=== PATIENT | male | born 1965 | race African-American/Black ===

== ENCOUNTER 2022-04-20 01:21 | Inpatient (IN) | payer SELFPAY ==
[2022-04-20] MEDS ORDERED: PANTOPRAZOLE SODIUM 40 MG VIAL IVPUSH ONE (02:08)
[2022-04-20] MEDS ORDERED: PANTOPRAZOLE SODIUM 40 MG/100 ML BAG IVPB ONE (02:46)
[2022-04-20 03:13] LABS: BASO % 0.7 % (0-2.0); EOS % 0.2 % (0-4.5); HEMATOCRIT 25.9 % (35.4-49); HEMOGLOBIN 8.1 GM/dL (11.7-16.9); LYMPH % 13.4 % (8-40); MCH 20.7 pg (25.7-33.7); MCHC 31.2 g/dl (32.0-35.9); MEAN CELL VOLUME 66.3 fl (80-96); MEAN PLT VOLUME 8.1 fl (7.5-11.1); MONO % 5.1 % (3.8-10.2); NEUT % 80.6 % (42.8-82.8); PLATELET COUNT 322 10^3/uL (134-434); RBC 3.91 M/mm3 (4.00-5.60); RDW 23.6 % (11.9-15.9); WHITE BLOOD COUNT 8.2 K/mm3 (4.0-10.0)
[2022-04-20 03:31] LABS: CALCIUM 9.3 mg/dL (8.5-10.1)
[2022-04-20 03:33] LABS: ALBUMIN 3.2 g/dl (3.4-5.0); BLOOD UREA NITROGEN 28.1 mg/dL (7-18)
[2022-04-20 03:36] LABS: CREATININE 1.9 mg/dL (0.55-1.3)
[2022-04-20 03:37] LABS: BILIRUBIN,TOTAL 0.3 mg/dL (0.2-1); TOT PROT 6.1 g/dl (6.4-8.2)
[2022-04-20 04:35] LABS: ANISOCYTOSIS 3+; MACROCYTOSIS 0; ROULEAU 2+
[2022-04-20] MEDS ORDERED: PANTOPRAZOLE SODIUM 40 MG VIAL IVPUSH SCH (10:00)
[2022-04-20] MEDS ORDERED: SODIUM CHLORIDE 1,000 ML IV STA (11:15)
[2022-04-20] MEDS: PANTOPRAZOLE SODIUM 160 MG in SODIUM CHLORIDE 290 ML IVPB SCH ×2 (12:00→22:19)
[2022-04-20 12:15] LABS: BLOOD UREA NITROGEN 34.6 mg/dL (7-18)
[2022-04-20 12:19] LABS: BILIRUBIN,TOTAL 0.3 mg/dL (0.2-1); CREATININE 1.8 mg/dL (0.55-1.3); TOT PROT 4.6 g/dl (6.4-8.2)
[2022-04-20 12:23] LABS: ALBUMIN 2.5 g/dl (3.4-5.0)
[2022-04-20 16:17] LABS: INR 1.34 (0.83-1.09); PROTHROMBIN TIME (PATIENT) 15.5 SEC (9.7-13.0)
[2022-04-20 16:20] LABS: ACTIVATED PTT 22.6 SECONDS (25.2-36.5)
[2022-04-20 16:43] LABS: BASO % 0.3 % (0-2.0); HEMATOCRIT 28.3 % (35.4-49); HEMOGLOBIN 9.3 GM/dL (11.7-16.9); LYMPH % 14.4 % (8-40); MCH 25.8 pg (25.7-33.7); MCHC 32.8 g/dl (32.0-35.9); MEAN CELL VOLUME 78.7 fl (80-96); MONO % 7.3 % (3.8-10.2); PLATELET COUNT 199 10^3/uL (134-434); RBC 3.59 M/mm3 (4.00-5.60); RDW 26.1 % (11.9-15.9); WHITE BLOOD COUNT 9.5 K/mm3 (4.0-10.0)
[2022-04-20] MEDS: SODIUM CHLORIDE 1,000 ML IV SCH (16:45)
[2022-04-20] MEDS ORDERED: PHYTONADIONE 10 MG/1 ML AMP IVPB STA (19:04)
[2022-04-20] MEDS ORDERED: DESMOPRESSIN ACETATE 4 MCG/ML AMP IVPB STA (19:04)
[2022-04-20 19:36] LABS: BLOOD UREA NITROGEN 34.3 mg/dL (7-18); CALCIUM 7.2 mg/dL (8.5-10.1)
[2022-04-20 19:41] LABS: CREATININE 1.7 mg/dL (0.55-1.3)
[2022-04-20 20:30] LABS: BASO % 0.2 % (0-2.0); HEMATOCRIT 21.4 % (35.4-49); LYMPH % 10.6 % (8-40); MCH 25.9 pg (25.7-33.7); MCHC 32.7 g/dl (32.0-35.9); MEAN CELL VOLUME 79.2 fl (80-96); MEAN PLT VOLUME 8.6 fl (7.5-11.1); MONO % 8.9 % (3.8-10.2); NEUT % 80.3 % (42.8-82.8); PLATELET COUNT 212 10^3/uL (134-434); RDW 22.1 % (11.9-15.9)
[2022-04-20 20:50] LABS: INR 1.34 (0.83-1.09); PROTHROMBIN TIME (PATIENT) 15.5 SEC (9.7-13.0)
[2022-04-20 20:52] LABS: ACTIVATED PTT 22.6 SECONDS (25.2-36.5)
[2022-04-20 21:21] LABS: LACTIC ACID 2.5 mmol/L (0.4-2.0)
[2022-04-21 03:28] LABS: HEMATOCRIT 22.5 % (35.4-49); HEMOGLOBIN 7.7 GM/dL (11.7-16.9); MCH 27.7 pg (25.7-33.7); MCHC 34.4 g/dl (32.0-35.9); MEAN CELL VOLUME 80.6 fl (80-96); MEAN PLT VOLUME 8.4 fl (7.5-11.1); PLATELET COUNT 182 10^3/uL (134-434); RBC 2.79 M/mm3 (4.00-5.60); RDW 19.2 % (11.9-15.9)
[2022-04-21 09:58] LABS: HEMATOCRIT 22.9 % (35.4-49); HEMOGLOBIN 7.6 GM/dL (11.7-16.9); MCH 27.4 pg (25.7-33.7); MCHC 33.4 g/dl (32.0-35.9); MEAN PLT VOLUME 8.8 fl (7.5-11.1); PLATELET COUNT 179 10^3/uL (134-434); RBC 2.79 M/mm3 (4.00-5.60); RDW 18.9 % (11.9-15.9); WHITE BLOOD COUNT 18.2 K/mm3 (4.0-10.0)
[2022-04-21 10:05] LABS: INR 1.18 (0.83-1.09); PROTHROMBIN TIME (PATIENT) 13.6 SEC (9.7-13.0)
[2022-04-21 10:26] LABS: ALBUMIN 2.4 g/dl (3.4-5.0); BLOOD UREA NITROGEN 44.8 mg/dL (7-18); CALCIUM 7.3 mg/dL (8.5-10.1)
[2022-04-21 10:29] LABS: CREATININE 3.8 mg/dL (0.55-1.3)
[2022-04-21 10:31] LABS: TOT PROT 4.4 g/dl (6.4-8.2)
[2022-04-21] MEDS ORDERED: DEXTROSE 5%-0.45% SALINE 1,000 ML IV SCH (11:15)
[2022-04-21] MEDS: DEXTROSE 5%-0.45% SALINE 1,000 ML IV SCH (15:24)
[2022-04-21] MEDS ORDERED: SODIUM ZIRCONIUM CYCLOSILICATE (LOKELMA) 5 GM PACKET PO SCH (16:15)
[2022-04-21] MEDS ORDERED: ALBUMIN HUMAN 25% 12.5 GM/50 ML VIAL IV SCH (17:00)
[2022-04-21] MEDS: PANTOPRAZOLE SODIUM 160 MG in SODIUM CHLORIDE 290 ML IVPB SCH (17:21)
[2022-04-21] MEDS: SODIUM CHLORIDE 1,000 ML IV SCH ×2 (20:47)
[2022-04-22] MEDS: DEXTROSE 5%-0.45% SALINE 1,000 ML IV SCH ×2 (04:03→20:29)
[2022-04-22] MEDS: PANTOPRAZOLE SODIUM 160 MG in SODIUM CHLORIDE 290 ML IVPB SCH (05:35)
[2022-04-22 08:24] LABS: HEMATOCRIT 20.3 % (35.4-49); MCH 27.6 pg (25.7-33.7); MCHC 33.8 g/dl (32.0-35.9); MEAN CELL VOLUME 81.7 fl (80-96); MEAN PLT VOLUME 8.8 fl (7.5-11.1); PLATELET COUNT 158 10^3/uL (134-434); RBC 2.49 M/mm3 (4.00-5.60); RDW 16.9 % (11.9-15.9); WHITE BLOOD COUNT 13.2 K/mm3 (4.0-10.0)
[2022-04-22 08:31] LABS: INR 1.03 (0.83-1.09); PROTHROMBIN TIME (PATIENT) 11.8 SEC (9.7-13.0)
[2022-04-22 08:33] LABS: ACTIVATED PTT 22.8 SECONDS (25.2-36.5)
[2022-04-22 08:41] LABS: CALCIUM 7.9 mg/dL (8.5-10.1)
[2022-04-22 08:42] LABS: ALBUMIN 2.6 g/dl (3.4-5.0); BLOOD UREA NITROGEN 42.2 mg/dL (7-18)
[2022-04-22 08:45] LABS: BILIRUBIN,TOTAL 0.8 mg/dL (0.2-1); CREATININE 2.6 mg/dL (0.55-1.3); TOT PROT 4.6 g/dl (6.4-8.2)
[2022-04-22 08:49] LABS: HEMOGLOBIN 6.9 GM/dL (11.7-16.9)
[2022-04-22] MEDS ORDERED: LACTULOSE 20 GM/30 ML UDC (FOR ORAL USE ONLY) PO ONE ×2 (10:30→11:30)
[2022-04-22] MEDS ORDERED: SODIUM PHOSPHATE/NA BIPHOS 133 ML ENEMA RC ONE (12:30)
[2022-04-22 14:20] VITALS: BMI 24.3
[2022-04-22 18:16] LABS: BASO % 0.4 % (0-2.0); EOS % 0.3 % (0-4.5); HEMATOCRIT 27.2 % (35.4-49); HEMOGLOBIN 9.2 GM/dL (11.7-16.9); LYMPH % 15.5 % (8-40); MCH 28.1 pg (25.7-33.7); MEAN CELL VOLUME 82.7 fl (80-96); MEAN PLT VOLUME 8.4 fl (7.5-11.1); MONO % 8.9 % (3.8-10.2); NEUT % 74.9 % (42.8-82.8); PLATELET COUNT 147 10^3/uL (134-434); RBC 3.29 M/mm3 (4.00-5.60); RDW 16.2 % (11.9-15.9); WHITE BLOOD COUNT 13.9 K/mm3 (4.0-10.0)
[2022-04-22] MEDS: VERAPAMIL HCL 240 MG E.R. TABLET PO SCH (21:30)
[2022-04-23 07:33] LABS: INR 1.01 (0.83-1.09); PROTHROMBIN TIME (PATIENT) 11.6 SEC (9.7-13.0)
[2022-04-23 07:36] LABS: ACTIVATED PTT 25.4 SECONDS (25.2-36.5)
[2022-04-23] MEDS: VERAPAMIL HCL 240 MG E.R. TABLET PO SCH (10:06)
[2022-04-23 12:47] LABS: HEMATOCRIT 24.8 % (35.4-49); HEMOGLOBIN 8.4 GM/dL (11.7-16.9); MCH 28.2 pg (25.7-33.7); MCHC 33.9 g/dl (32.0-35.9); MEAN CELL VOLUME 83.2 fl (80-96); MEAN PLT VOLUME 8.3 fl (7.5-11.1); PLATELET COUNT 155 10^3/uL (134-434); RBC 2.98 M/mm3 (4.00-5.60); RDW 16.6 % (11.9-15.9); WHITE BLOOD COUNT 13.2 K/mm3 (4.0-10.0)
[2022-04-23] MEDS ORDERED: DESMOPRESSIN ACETATE 4 MCG/ML AMP IVPB STA (14:22)
[2022-04-23] MEDS ORDERED: DESMOPRESSIN ACETATE 20 MCG in SODIUM CHLORIDE 50 ML IVPB ONE (14:30)
[2022-04-23 14:31] LABS: ALBUMIN 2.5 g/dl (3.4-5.0); BLOOD UREA NITROGEN 18.4 mg/dL (7-18); CALCIUM 8.3 mg/dL (8.5-10.1); CREATININE 1.4 mg/dL (0.55-1.3); MAGNESIUM 1.9 mg/dL (1.8-2.4); PHOSPHOROUS 2.8 mg/dL (2.5-4.9)
[2022-04-23] MEDS ORDERED: POTASSIUM CHLORIDE ORAL LIQUID 20 MEQ/15 ML PO ONE (14:33)
[2022-04-24 09:05] LABS: HEMATOCRIT 24.2 % (35.4-49); HEMOGLOBIN 8.3 GM/dL (11.7-16.9); MCH 28.3 pg (25.7-33.7); MCHC 34.3 g/dl (32.0-35.9); MEAN CELL VOLUME 82.4 fl (80-96); MEAN PLT VOLUME 8.4 fl (7.5-11.1); PLATELET COUNT 179 10^3/uL (134-434); RBC 2.94 M/mm3 (4.00-5.60); RDW 15.9 % (11.9-15.9); WHITE BLOOD COUNT 8.9 K/mm3 (4.0-10.0)
[2022-04-24 09:08] LABS: INR 1.01 (0.83-1.09); PROTHROMBIN TIME (PATIENT) 11.6 SEC (9.7-13.0)
[2022-04-24 09:10] LABS: ACTIVATED PTT 26.4 SECONDS (25.2-36.5)
[2022-04-24] MEDS: VERAPAMIL HCL 240 MG E.R. TABLET PO SCH (09:20)
[2022-04-24 09:37] LABS: ALBUMIN 2.6 g/dl (3.4-5.0); BLOOD UREA NITROGEN 15.6 mg/dL (7-18); CALCIUM 8.4 mg/dL (8.5-10.1)
[2022-04-24 09:40] LABS: CREATININE 1.4 mg/dL (0.55-1.3)
[2022-04-24 09:41] LABS: TOT PROT 5.2 g/dl (6.4-8.2)
[2022-04-24] MEDS: FERROUS SO4 325 MG TABLET (FP) PO SCH ×2 (13:04→17:53)
[2022-04-25] MEDS ORDERED: FOLIC ACID 1 MG TABLET (FP) PO SCH (10:00)
[2022-04-25] MEDS ORDERED: ASCORBIC ACID 500 MG TABLET (FP) PO SCH (10:00)
[2022-04-25 10:19] LABS: HEMATOCRIT 25.7 % (35.4-49); HEMOGLOBIN 8.6 GM/dL (11.7-16.9); MCH 27.7 pg (25.7-33.7); MCHC 33.4 g/dl (32.0-35.9); MEAN PLT VOLUME 8.8 fl (7.5-11.1); PLATELET COUNT 231 10^3/uL (134-434); RDW 16.2 % (11.9-15.9); WHITE BLOOD COUNT 8.2 K/mm3 (4.0-10.0)
[2022-04-25 10:27] LABS: INR 1.01 (0.83-1.09); PROTHROMBIN TIME (PATIENT) 11.6 SEC (9.7-13.0)
[2022-04-25 10:30] LABS: ACTIVATED PTT 28.5 SECONDS (25.2-36.5)
[2022-04-25 10:49] LABS: CALCIUM 8.7 mg/dL (8.5-10.1)
[2022-04-25 10:51] LABS: ALBUMIN 2.8 g/dl (3.4-5.0); BLOOD UREA NITROGEN 14.7 mg/dL (7-18)
[2022-04-25 10:53] LABS: CREATININE 1.7 mg/dL (0.55-1.3)
[2022-04-25 10:55] LABS: BILIRUBIN,TOTAL 0.6 mg/dL (0.2-1); TOT PROT 5.7 g/dl (6.4-8.2)
[2022-04-25] MEDS: VERAPAMIL HCL 240 MG E.R. TABLET PO SCH (10:55)
[2022-04-25] MEDS: FERROUS SO4 325 MG TABLET (FP) PO SCH ×2 (10:55→14:16)
[2022-04-25 10:57] VITALS: RESP 18
[2022-04-25] MEDS ORDERED: POTASSIUM CHLORIDE ORAL LIQUID 20 MEQ/15 ML PO ONE (12:45)
[2022-04-25 15:25] VITALS: BP 129/68; PULSE 76; TEMP 99.1
== END 2022-04-25 18:19 | disposition home or self-care (01) | DRG 244 ==
LOC: JER 01:21 → JERBED 03:14 → UNDOADMOB 03:14 → INTOOBSV 03:14 → J6S 09:57 → JERBED 09:57 → J6S 10:40 → JERBED 10:40 → JICU 12:14 → OBSVTOIN 14:56 → J8W 04-23 14:07
PROVIDERS: ADMIT Family Medicine; ATTEND Family Medicine
PROC: 30233N1 Transfusion of Nonautologous Red Blood Cells into Peripheral Vein, Percutaneous Approach (ICD-10-PCS; 2022-04-20)
PROC: 30233L1 Transfusion of Nonautologous Fresh Plasma into Peripheral Vein, Percutaneous Approach (ICD-10-PCS; 2022-04-20)
PROC: 30233K1 Transfusion of Nonautologous Frozen Plasma into Peripheral Vein, Percutaneous Approach (ICD-10-PCS; 2022-04-20)
PROC: 30233R1 Transfusion of Nonautologous Platelets into Peripheral Vein, Percutaneous Approach (ICD-10-PCS; 2022-04-20)
PROC: 02HV33Z Insertion of Infusion Device into Superior Vena Cava, Percutaneous Approach (ICD-10-PCS; 2022-04-20)
PROC: B415YZZ Fluoroscopy of Inferior Mesenteric Artery using Other Contrast (ICD-10-PCS; 2022-04-20)
PROC: B414YZZ Fluoroscopy of Superior Mesenteric Artery using Other Contrast (ICD-10-PCS; 2022-04-20)
PROC: 30233M1 Transfusion of Nonautologous Plasma Cryoprecipitate into Peripheral Vein, Percutaneous Approach (ICD-10-PCS; 2022-04-21)
PROC: 0DJ08ZZ Inspection of Upper Intestinal Tract, Via Natural or Artificial Opening Endoscopic (ICD-10-PCS; principal; 2022-04-22 14:00)
DX: K57.93 Diverticulitis of intestine, part unspecified, without perforation or abscess with bleeding (principal); I42.1 Obstructive hypertrophic cardiomyopathy; E87.0 Hyperosmolality and hypernatremia; N17.9 Acute kidney failure, unspecified; I48.91 Unspecified atrial fibrillation; R10.9 Unspecified abdominal pain; E87.5 Hyperkalemia; R00.0 Tachycardia, unspecified; E78.5 Hyperlipidemia, unspecified; I12.9 Hypertensive chronic kidney disease with stage 1 through stage 4 chronic kidney disease, or unspecified chronic kidney disease; I95.9 Hypotension, unspecified; K62.5 Hemorrhage of anus and rectum; N18.9 Chronic kidney disease, unspecified; D64.9 Anemia, unspecified
CPT/HCPCS: 36415; 36430; 37244; 71045-TC-FY; 74174-TC; 80048; 80053; 82272; 82962; 83605; 83735; 84100; 84484; 85025; 85027; 85610; 85730; 86850; 86900; 86901; 86922; 86965; 93005; 93010; 99285-25; C9803-CS; G0378; J2597; P9012; P9017; P9034; P9058; U0003; U0005

== ENCOUNTER 2022-04-29 00:58 | Inpatient (IN) | payer SELFPAY ==
[2022-04-29 07:18] LABS: BASO % 0.8 % (0-2.0); EOS % 0.7 % (0-4.5); HEMATOCRIT 22.9 % (35.4-49); HEMOGLOBIN 7.6 GM/dL (11.7-16.9); LYMPH % 12.1 % (8-40); MCH 28.1 pg (25.7-33.7); MCHC 33.4 g/dl (32.0-35.9); MEAN CELL VOLUME 84.2 fl (80-96); MEAN PLT VOLUME 7.8 fl (7.5-11.1); MONO % 10.9 % (3.8-10.2); NEUT % 75.5 % (42.8-82.8); PLATELET COUNT 368 10^3/uL (134-434); RBC 2.72 M/mm3 (4.00-5.60); RDW 16.5 % (11.9-15.9); WHITE BLOOD COUNT 13.4 K/mm3 (4.0-10.0)
[2022-04-29 07:21] LABS: ACTIVATED PTT 27.6 SECONDS (25.2-36.5); INR 1.03 (0.83-1.09); PROTHROMBIN TIME (PATIENT) 11.8 SEC (9.7-13.0)
[2022-04-29] MEDS ORDERED: SODIUM CHLORIDE 1,000 ML IV SCH (07:30)
[2022-04-29 07:43] LABS: ALBUMIN 2.8 g/dl (3.4-5.0); ALK PHOS 60 U/L (45-117); BILIRUBIN,TOTAL 0.3 mg/dL (0.2-1); BLOOD UREA NITROGEN 29.5 mg/dL (7-18); CALCIUM 8.6 mg/dL (8.5-10.1); CHLORIDE 103 mmol/L (98-107); CO2 28 mmol/L (21-32); CREATININE 1.9 mg/dL (0.55-1.3); GLUCOSE,RANDOM 118 mg/dL (74-106); SGOT/AST 11 U/L (15-37); SGPT/ALT 17 U/L (13-61); SODIUM 139 mmol/L (136-145); TOT PROT 5.8 g/dl (6.4-8.2)
[2022-04-29] MEDS ORDERED: LACTULOSE 20 GM/30 ML UDC (FOR ORAL USE ONLY) PO ONE ×2 (09:12→10:30)
[2022-04-29 09:24] LABS: BASO % 0.6 % (0-2.0); EOS % 0.9 % (0-4.5); HEMATOCRIT 26.9 % (35.4-49); LYMPH % 17.1 % (8-40); MCH 27.7 pg (25.7-33.7); MCHC 33.3 g/dl (32.0-35.9); MEAN CELL VOLUME 83.1 fl (80-96); MEAN PLT VOLUME 8.4 fl (7.5-11.1); MONO % 11.8 % (3.8-10.2); NEUT % 69.6 % (42.8-82.8); PLATELET COUNT 320 10^3/uL (134-434); RBC 3.24 M/mm3 (4.00-5.60); RDW 15.6 % (11.9-15.9); WHITE BLOOD COUNT 10.8 K/mm3 (4.0-10.0)
[2022-04-29 09:45] LABS: ALBUMIN 2.7 g/dl (3.4-5.0); BLOOD UREA NITROGEN 24.4 mg/dL (7-18); CALCIUM 8.6 mg/dL (8.5-10.1)
[2022-04-29 09:48] LABS: CREATININE 1.5 mg/dL (0.55-1.3)
[2022-04-29 09:50] LABS: BILIRUBIN,TOTAL 0.5 mg/dL (0.2-1); TOT PROT 5.5 g/dl (6.4-8.2)
[2022-04-29] MEDS ORDERED: LACTULOSE 20 GM/30 ML UDC (FOR ORAL USE ONLY) ONE ×2 (09:59→11:37)
[2022-04-29] MEDS ORDERED: SODIUM PHOSPHATE/NA BIPHOS 133 ML ENEMA RC ONE (12:00)
[2022-04-29 12:31] LABS: MAGNESIUM 1.9 mg/dL (1.8-2.4)
[2022-04-29 12:39] LABS: N-TERMINAL BNP 553.8 pg/ml (5-125)
[2022-04-29 17:44] VITALS: BMI 24.9
[2022-04-30] MEDS ORDERED: SIMETHICONE 80 MG TAB.CHEW (FP) PO PRN (08:55)
[2022-04-30 11:31] LABS: HEMOGLOBIN 9.1 GM/dL (11.7-16.9); MCH 28.5 pg (25.7-33.7); MCHC 33.7 g/dl (32.0-35.9); MEAN CELL VOLUME 84.7 fl (80-96); PLATELET COUNT 305 10^3/uL (134-434); RBC 3.18 M/mm3 (4.00-5.60); RDW 16.1 % (11.9-15.9); WHITE BLOOD COUNT 7.1 K/mm3 (4.0-10.0)
[2022-04-30 12:04] VITALS: BP 150/90; PULSE 88; RESP 16; TEMP 99.8
== END 2022-04-30 13:15 | disposition home or self-care (01) | DRG 244 ==
LOC: JER 00:58 → JERBED 07:10 → J7W 17:03 → OBSVTOIN 04-30 11:56
PROVIDERS: ADMIT Family Medicine; ATTEND Family Medicine
PROC: 0W3P8ZZ Control Bleeding in Gastrointestinal Tract, Via Natural or Artificial Opening Endoscopic (ICD-10-PCS; principal; 2022-04-29 14:00)
DX: K57.33 Diverticulitis of large intestine without perforation or abscess with bleeding (principal); I12.9 Hypertensive chronic kidney disease with stage 1 through stage 4 chronic kidney disease, or unspecified chronic kidney disease; N18.9 Chronic kidney disease, unspecified; I48.91 Unspecified atrial fibrillation; D62 Acute posthemorrhagic anemia; E11.22 Type 2 diabetes mellitus with diabetic chronic kidney disease
CPT/HCPCS: 36415; 36430; 71045-TC-FY; 74177-TC; 78278-TC; 80053; 82272; 83605; 83735; 83880; 84484; 85025; 85027; 85610; 85730; 86850; 86900; 86901; 86922; 93005; 93010; 94760; 99285-25; A9538; C9803-CS; G0378; P9058; U0003; U0005

== ENCOUNTER 2022-07-28 17:34 | Emergency (ER) | payer BC, OTHER ==
[2022-07-28 18:16] VITALS: TEMP 98.1; BMI 25.2
[2022-07-28 20:30] VITALS: BP 141/88; PULSE 88; RESP 16
[2022-07-28 20:46] LABS: BASO % 0.3 % (0-2.0); EOS % 0.1 % (0-4.5); HEMATOCRIT 40.6 % (35.4-49); HEMOGLOBIN 13.1 GM/dL (11.7-16.9); LYMPH % 16.1 % (8-40); MCH 26.4 pg (25.7-33.7); MCHC 32.3 g/dl (32.0-35.9); MEAN CELL VOLUME 81.7 fl (80-96); MONO % 5.9 % (3.8-10.2); NEUT % 77.6 % (42.8-82.8); PLATELET COUNT 238 10^3/uL (134-434); RBC 4.96 M/mm3 (4.00-5.60); WHITE BLOOD COUNT 8.5 K/mm3 (4.0-10.0)
[2022-07-28 21:04] LABS: INR 1.1 (0.83-1.09); PROTHROMBIN TIME (PATIENT) 12.7 SEC (9.7-13.0)
[2022-07-28 21:14] LABS: VENOUS BASE EXCESS 1.9 mmol/L (-2-2); VENOUS O2 SATURATION 89.8 % (70-80); VENOUS PH 7.413 (7.310-7.410)
[2022-07-28 22:13] LABS: ALBUMIN 3.6 g/dl (3.4-5.0); BILIRUBIN,TOTAL 0.5 mg/dL (0.2-1); BLOOD UREA NITROGEN 36.8 mg/dL (7-18); CALCIUM 9.2 mg/dL (8.5-10.1); CREATININE 1.7 mg/dL (0.55-1.3); TOT PROT 6.6 g/dl (6.4-8.2)
== END 2022-07-28 22:19 | disposition home or self-care (01) ==
LOC: JER 17:34
DX: K62.5 Hemorrhage of anus and rectum (principal)
CPT/HCPCS: 0241U-QW; 36415; 80053; 82803; 84484; 85025; 85610; 85730; 86850; 86900; 86901; 93005; 93010; 99284-25